=== PATIENT | female | born 1965 | race Caucasian/White ===

== ENCOUNTER 2025-05-02 18:22 | Emergency (ER) | payer MEDICAID ==
[~2025-05-02] VITALS: Ht 160 cm; Wt 64.0 kg
[2025-05-02 18:25] VITALS: O2SAT 99
[2025-05-02 18:30] VITALS: BP 139/99; PULSE 83; RESP 18; TEMP 36.7; O2SAT 99
== END 2025-05-02 20:12 | disposition left against medical advice (07) ==
LOC: ER 18:22
DX: R53.1 Weakness (principal)
CPT/HCPCS: 99281